=== PATIENT | male | born 1965 | race Caucasian/White ===

== ENCOUNTER 2024-09-22 00:39 | Inpatient (IN) | payer OTHER, SELFPAY ==
[2024-09-21 19:58] VITALS: BP 138/94
[2024-09-21 20:29] VITALS: BP 119/81
[2024-09-21 20:30] VITALS: BMI 35.5
--- NOTE | 2024-09-21 20:51 | ED.GENMED ---
History of Present Illness
<Tabby Nascimento PA-C - Last Filed: 09/22/24 03:45>
General
Chief Complaint: Breathing Problem
Source: patient
Exam Limitations: none
Time Seen by Provider: 09/21/24 20:14
Nursing documentation reviewed up to this point in time: agreed with
History of Present Illness
History of Present Illness:
Patient is a 59-year-old male with history atrial fibrillation, hypertension, hyperlipidemia presenting to the emergency department for evaluation of 1 week of exertional dyspnea. Patient states that over the past week he has become extremely short
of breath while walking short distances and while lying flat at night. He states he has gained approximately 10 pounds in the past 1 week. He denies any associated chest pain, cough, or fever. He denies any lightheadedness or syncopal episodes.
Patient states that he had a cardiac ablation done approximately 1 year ago at [facility] he follows for cardiology. He was taking Eliquis metoprolol and a diuretic following this procedure although stopped these medications about 6 months ago.
Discontinuing medications was not instructed by his brim shaper. He states that he likes to 'avoid medications'.
Patient denies any recent travel or recent surgeries.
Review of Systems
<Tabby Nascimento PA-C - Last Filed: 09/22/24 03:45>
Review of Systems
Allergies reviewed?: Yes
All Other Systems: ROS reviewed and negative except as documented in HPI and ROS
Phy Exam
<Tabby Nascimento PA-C - Last Filed: 09/22/24 03:45>
Physical Exam
Physical Exam:
Vitals: Patient's vital signs are stable. Afebrile
General: Patient is in no acute distress
Skin: Warm and dry, no rashes or lesions
Head: Normocephalic, atraumatic
Eyes: Sclera nonicteric.
Throat: Protecting airway
Neck: Normal ROM, no cervical spine tenderness, no meningismus
Cardiac: Regular rate and rhythm, no murmurs.
Pulm: Fine crackles bilaterally. No apparent respiratory distress.
.
Abdomen: Abdomen soft and nontender.
Extremities: Nonpitting edema bilateral lower extremities. No evidence of cyanosis or edema. Palpable DP pulses bilaterally
Neuro: AAOx3. Grossly intact.
Psychiatric: Normal affect.
Scores
<Tabby Nascimento PA-C - Last Filed: 09/22/24 03:45>
Heart Failure Risk
Heart Failure Risk Score: Yes
History of Stroke or TIA: No
History of intubation for respiratory distress: No
Heart rate on ED arrival >/= 110: No
SaO2 <90% on arrival on room air: No
HR >/=110 during 3min walk test (or too ill to perform test): No
ECG has acute ischemic changes: Yes
Urea >/=12mmol/L (BUN 33.6mg/dL): Yes
Serum CO2>/=35mmol/L: No
Troponin I or T elevated to CT Level (0.4mg/dL): No
NT-proBNP >/=5,000ng/L (5,000pg/ml): Yes
HF Risk Score: 4
Admission Status: HIGH RISK 26.1% Consider SNF treatment or admission to hospital
Course
<Tabby Nascimento PA-C - Last Filed: 09/22/24 03:45>
Orders/Labs/Results
Orders:
Orders
09/21/24 20:52
Electrocardiogram (*1) Urgent
Reason for Study: Shortness of Breath
EKG- Treatment ONCE
CR Chest - 2 Views Urgent
Comment:
Reason For Exam: exertional dyspnea
09/21/24 21:03
Complete Blood Count/With Diff Urgent
Comprehensive Metabolic Panel Urgent
NT-proBNP Urgent
Troponin I Urgent
09/21/24 22:56
Furosemide [Lasix] 20 mg IV NOW STA
09/21/24 23:00
Flush (0.9% Sodium Chloride) [Flush (Nss)] See Dose Instructions IV PER PROTOCOL
09/21/24 23:40
Admit/Transfer Patient As Directed
Co-Sign Provider:
Level of Care: Inpatient admission
Assign to:: Telemetry
Physician / Group: reny
Diagnosis: CHF exacerbation
Reason for Telemetry: Subacute Heart Failure
Date to Stop Telemetry: 09/23/24
Time to Stop Telemetry: 11:00
Reason for Hospitalization: heart failure
Expected length of stay greater than two midnights?: Yes
ELOS- Estimated Length of Stay in days: 2
I certify the patient meets the requirements for IP care: Yes
PRN Pain Medication Management As Directed
May give lesser potent ordered pain med per pt: Yes
preference::
Protocol:: Medication orders for pain may be administered in a
manner that supports deferring to patient preference
when the pt is:
- Requesting an ordered lesser potent pain medication.
Least to most potent pain medications are defined
as: acetaminophen < NSAID < tramadol < opioids
(morphine, oxycodone, hydromorphone).
- Requesting a lesser dose of the same medication IF
ORDERED.
- Requesting a less intrusive route of administration
if both routes are prescribed by the provider (PO <
IV).
09/21/24 23:42
Code Status As Directed
Resuscitation Status: Full Code
09/22/24 00:00
Electrocardiogram (*1) Urgent
Reason for Study: Shortness of Breath
EKG- Treatment ONCE
09/22/24 00:21
Troponin I Urgent
09/22/24 01:29
Acetaminophen [Tylenol] 650 mg PO Q6HPRN PRN
09/22/24 01:29
Echo 2D MMode Color/Doppler Routine
Reason for Study: heart failure
CARDIOLOGY CONSULT Routine
Consulting Provider: Hernán Farrell
Was physician already notified: No
Reason for consult: CHF exacerbation, non-compliance
Consult Notification Routine
Specialty to Notify: Cardiology
HF DIETARY CONSULT Routine
HF EDUCATOR CONSULT Routine
Comment:
VTE Contraindication Routine
VTE Mechanical Device Contraindication: Medical Contraindication
Pharmocologic Contraindication: Medical Contraindication
Activity As Directed
Activity Level: As Tolerated
Intake/ Output As Directed
Frequency: Per unit guidelines
Orthostatic Vital Signs As Directed
Orthostatic VS Frequency: Daily
Patient Education As Directed
Type: CHF folder
Comment: give on admission. Document in Interdisciplinary Education record
Sleep Apnea Assessment by RN As Directed
Comment:
Physician Instructions:
Vital Signs As Directed
Frequency: Other
Additional Instructions:: Q12 or per unit guidelines if more frequent.
Weight As Directed
Frequency: Daily
Type of Scale: Standing Scale
Comment: Daily morning weight. If unable to stand, use balanced bed scale.
Weight As Directed
Frequency: Once
Type of Scale: Standing Scale
Comment: Upon Admission. If unable to stand, use balanced bed scale.
Pulse Ox/cont/shift [RESP] Routine
Quantity: 1
Special Instructions: Daily pulse oximetry at rest. If greater than 92% at rest also obtain pulse oximetry
while ambulating as tolerated.
09/22/24 03:32
Urinalysis Routine
Date Specimen was Collected: 09/22/24
Time Specimen was Collected: 03:30
09/22/24 Breakfast
Cholesterol Lowering
At Your Request: Full Participation
Does patient need a safe tray?: No
Reason for opting out of Outsole Splicer order writing: Provider Decision
Cholesterol Lowering: Sodium, 2 Gram
Basic Metabolic Panel IN AM
Cardiovascular Evaluation IN AM
Hemoglobin A1c [Glycohemoglobin (HgbA1c)] IN AM
Magnesium IN AM
Phosphorus IN AM
TSH Reflex To Free T4 IN AM
09/22/24 08:00
Amiodarone [Pacerone] 200 mg PO BID
Apixaban [Eliquis] 5 mg PO BID
Furosemide [Lasix] 40 mg IV BID AT 0800,1600
Metoprolol Xl [Toprol Xl] 50 mg PO DAILY
09/23/24 06:00
Basic Metabolic Panel IN AM
09/23/24 11:00
DC Protocol for Telemetry ONCE
09/24/24 06:00
Basic Metabolic Panel IN AM
Abnormal Lab Results
09/21/24 09/22/24
21:03 00:21
RBC 3.72 L 10^6/uL
(4.70-6.10)
Hgb 10.4 L g/dL
(13.0-18.0)
Hct 32.2 L %
(39.0-52.0)
MCHC 32.3 L g/dL
(33.0-37.0)
RDW 14.6 H %
(11.5-14.5)
Abs Immat Gran (auto) 0.1 H 10^3/uL
(0-0.05)
Absolute Monos (auto) 0.7 H 10^3/uL
(0.1-0.6)
Immature Gran % 0.6 H %
(0-0.5)
Lymphocytes % 19.5 L %
(20.5-51.1)
Chloride 111 H mmol/L
(98-107)
BUN 41 H mg/dl
(9-20)
Creatinine 2.4 H mg/dL
(0.7-1.3)
Glucose 111 H mg/dl
(70-99)
Troponin I 0.042 H* ng/ml 0.044 H* ng/ml
Total Protein 6.0 L g/dl
(6.3-8.2)
09/21/24 21:03
09/21/24 21:03
Vital Signs
Initial and Last Documented VS:
Initial Vital Signs
Temp Pulse Resp BP Pulse Ox
98.5 F 77 20 138/94 98
09/21/24 19:58 09/21/24 19:58 09/21/24 19:58 09/21/24 19:58 09/21/24 19:58
Last Documented Vital Signs
Temp Pulse Resp BP Pulse Ox
97.9 F 72 20 165/96 98
09/22/24 01:39 09/22/24 01:39 09/22/24 01:39 09/22/24 01:39 09/22/24 02:00
<Aldo Martinez, DO - Last Filed: 09/21/24 22:48>
Orders/Labs/Results
Orders:
Orders
09/21/24 20:52
Electrocardiogram (*1) Urgent
Reason for Study: Shortness of Breath
EKG- Treatment ONCE
CR Chest - 2 Views Urgent
Comment:
Reason For Exam: exertional dyspnea
09/21/24 21:03
Complete Blood Count/With Diff Urgent
Comprehensive Metabolic Panel Urgent
NT-proBNP Urgent
Troponin I Urgent
09/21/24 22:56
Furosemide [Lasix] 20 mg IV NOW STA
09/21/24 23:00
Flush (0.9% Sodium Chloride) [Flush (Nss)] See Dose Instructions IV PER PROTOCOL
09/21/24 23:40
Admit/Transfer Patient As Directed
Co-Sign Provider:
Level of Care: Inpatient admission
Assign to:: Telemetry
Physician / Group: reny
Diagnosis: CHF exacerbation
Reason for Telemetry: Subacute Heart Failure
Date to Stop Telemetry: 09/23/24
Time to Stop Telemetry: 11:00
Reason for Hospitalization: heart failure
Expected length of stay greater than two midnights?: Yes
ELOS- Estimated Length of Stay in days: 2
I certify the patient meets the requirements for IP care: Yes
PRN Pain Medication Management As Directed
May give lesser potent ordered pain med per pt: Yes
preference::
Protocol:: Medication orders for pain may be administered in a
manner that supports deferring to patient preference
when the pt is:
- Requesting an ordered lesser potent pain medication.
Least to most potent pain medications are defined
as: acetaminophen < NSAID < tramadol < opioids
(morphine, oxycodone, hydromorphone).
- Requesting a lesser dose of the same medication IF
ORDERED.
- Requesting a less intrusive route of administration
if both routes are prescribed by the provider (PO <
IV).
09/21/24 23:42
Code Status As Directed
Resuscitation Status: Full Code
09/22/24 00:00
Electrocardiogram (*1) Urgent
Reason for Study: Shortness of Breath
EKG- Treatment ONCE
09/22/24 00:21
Troponin I Urgent
09/22/24 01:29
Acetaminophen [Tylenol] 650 mg PO Q6HPRN PRN
09/22/24 01:29
Echo 2D MMode Color/Doppler Routine
Reason for Study: heart failure
CARDIOLOGY CONSULT Routine
Consulting Provider: Hernán Farrell
Was physician already notified: No
Reason for consult: CHF exacerbation, non-compliance
Consult Notification Routine
Specialty to Notify: Cardiology
HF DIETARY CONSULT Routine
HF EDUCATOR CONSULT Routine
Comment:
VTE Contraindication Routine
VTE Mechanical Device Contraindication: Medical Contraindication
Pharmocologic Contraindication: Medical Contraindication
Activity As Directed
Activity Level: As Tolerated
Intake/ Output As Directed
Frequency: Per unit guidelines
Orthostatic Vital Signs As Directed
Orthostatic VS Frequency: Daily
Patient Education As Directed
Type: CHF folder
Comment: give on admission. Document in Interdisciplinary Education record
Sleep Apnea Assessment by RN As Directed
Comment:
Physician Instructions:
Vital Signs As Directed
Frequency: Other
Additional Instructions:: Q12 or per unit guidelines if more frequent.
Weight As Directed
Frequency: Daily
Type of Scale: Standing Scale
Comment: Daily morning weight. If unable to stand, use balanced bed scale.
Weight As Directed
Frequency: Once
Type of Scale: Standing Scale
Comment: Upon Admission. If unable to stand, use balanced bed scale.
Pulse Ox/cont/shift [RESP] Routine
Quantity: 1
Special Instructions: Daily pulse oximetry at rest. If greater than 92% at rest also obtain pulse oximetry
while ambulating as tolerated.
09/22/24 03:32
Urinalysis Routine
Date Specimen was Collected: 09/22/24
Time Specimen was Collected: 03:30
09/22/24 Breakfast
Cholesterol Lowering
At Your Request: Full Participation
Does patient need a safe tray?: No
Reason for opting out of Outsole Splicer order writing: Provider Decision
Cholesterol Lowering: Sodium, 2 Gram
Basic Metabolic Panel IN AM
Cardiovascular Evaluation IN AM
Hemoglobin A1c [Glycohemoglobin (HgbA1c)] IN AM
Magnesium IN AM
Phosphorus IN AM
TSH Reflex To Free T4 IN AM
09/22/24 08:00
Amiodarone [Pacerone] 200 mg PO BID
Apixaban [Eliquis] 5 mg PO BID
Furosemide [Lasix] 40 mg IV BID AT 0800,1600
Metoprolol Xl [Toprol Xl] 50 mg PO DAILY
09/23/24 06:00
Basic Metabolic Panel IN AM
09/23/24 11:00
DC Protocol for Telemetry ONCE
09/24/24 06:00
Basic Metabolic Panel IN AM
Abnormal Lab Results
09/21/24 09/22/24
21:03 00:21
RBC 3.72 L 10^6/uL
(4.70-6.10)
Hgb 10.4 L g/dL
(13.0-18.0)
Hct 32.2 L %
(39.0-52.0)
MCHC 32.3 L g/dL
(33.0-37.0)
RDW 14.6 H %
(11.5-14.5)
Abs Immat Gran (auto) 0.1 H 10^3/uL
(0-0.05)
Absolute Monos (auto) 0.7 H 10^3/uL
(0.1-0.6)
Immature Gran % 0.6 H %
(0-0.5)
Lymphocytes % 19.5 L %
(20.5-51.1)
Chloride 111 H mmol/L
(98-107)
BUN 41 H mg/dl
(9-20)
Creatinine 2.4 H mg/dL
(0.7-1.3)
Glucose 111 H mg/dl
(70-99)
Troponin I 0.042 H* ng/ml 0.044 H* ng/ml
Total Protein 6.0 L g/dl
(6.3-8.2)
09/21/24 21:03
09/21/24 21:03
Vital Signs
Initial and Last Documented VS:
Initial Vital Signs
Temp Pulse Resp BP Pulse Ox
98.5 F 77 20 138/94 98
09/21/24 19:58 09/21/24 19:58 09/21/24 19:58 09/21/24 19:58 09/21/24 19:58
Last Documented Vital Signs
Temp Pulse Resp BP Pulse Ox
97.9 F 72 20 165/96 98
09/22/24 01:39 09/22/24 01:39 09/22/24 01:39 09/22/24 01:39 09/22/24 02:00
<Tabby Nascimento PA-C - Last Filed: 09/22/24 03:45>
MDM/Problems Addressed
Differential Diagnosis Includes:
Not limited to: acute coronary syndrome, acute CHF exacerbation, anemia, bronchitis, pneumonia, etc
MDM/Problems Addressed:
59-year-old male presents with one week of exertional dyspnea and 10lb weight gain. No exertional chest pain. No infectious symptoms, including fever or cough. Patient with history of afib s/p ablation. He decided to stop his medication�s (eliquis,
metoprolol, lasix) that are prescribed by his brim shaper for the past 6 months, however did restart this past Thursday after not feeling well. Vitals and physical exam as above.
Given exertional dyspnea and recent weight gain � concern for possible congestive heart failure. Other considerations include ACS, anemia, bronchitis, etc. Will check labs, cardiac enzymes, chest x-ray, EKG.
Update: Labs and imaging reviewed. Overall impression is likely acute CHF exacerbation given significantly elevated proBNP and pulmonary edema on chest x-ray. Troponin elevated, which I suspect to be due to demand ischemia however given new T wave
inversions noted on EKG, unable to exclude acute coronary syndrome. Will continue to trend troponin. Considered IV heparin however patient has been taking Eliquis for the past three days. Patient also found to have an DANA. He will require admission
for careful fluid balance and diuresis. Patient given 20 mg IV Lasix in emergency department. Patient accepted to hospitalist service in stable condition.
Chronic conditions affecting care:
Atrial fibrillation, CHF
Acute Exacerbation and/or Progression of Chronic Illness:
Acute CHF exacerbation
<Tabby Nascimento PA-C - Last Filed: 09/22/24 03:45>
*Radiology
Radiology exam reviewed: preliminary read by ED provider (Mild pulmonary edema and increased pulmonary vascualture)
*Pulse Oximetry
Patient hypoxic: no
*EKG
Interpreted by ED Provider?: Yes
EKG Intrepretation Date: 09/21/24
Interpretation: abnormal
Comparison EKG: changes noted
Heart Rate: 75
Rate: normal
Rhythm: sinus
[place]: indeterminate
Ischemia: T-wave inversion (inverted T waves in anterior/lateral leads)
*Weather Reporter Interpretation
Rate: normal
Interpretation: normal
Heart Rate: 74
Rhythm: sinus
*Critical Care Note
Total Time (30-74mins, 75-104mins- exclusive of procedures): Not Applicable
<ALEXANDER Huber Last Filed: 09/22/24 03:45>
Patient Management
Discussion with other providers: Hospitalist
Escalation/DeEscalation of care consider admission/obs:
Admit for acute CHF exacerbation/ DANA
ED Attending Note
<ALEXANDER Huber Last Filed: 09/22/24 03:45>
-
Portions of this chart may have been created with voice recognition software.� Occasional wrong word or��sound alike� substitutions may have occurred due to the inherent limitations of voice recognition software.
<Aldo Martinez DO - Last Filed: 09/21/24 22:48>
ED Attending Note
I performed the substantive portion of visit, reviewed & personally made and approve the management plan that is documented in note by myself or LOR.: Yes
Discharge Plan
Departure
Patient Disposition: Admit
Date of Disposition: 09/21/24
Time of Disposition: 22:56
Presentation/result/management discussed w/ accepting MD/DO: Hospitalist
Discharge Problem:
Acute exacerbation of CHF (congestive heart failure), DANA (acute kidney injury), Elevated troponin I level
Interventions
Interventions:
*Risk Screen - Suicide Last Done: 09/21/24 19:58
*General Assessment Last Done: 09/21/24 19:58
*Neglect/Abuse Screening Last Done: 09/21/24 19:58
*ED- Fall Risk Assessment Last Done: 09/21/24 20:30
*ED COVID-19 Vaccine History Last Done: 09/21/24 20:30
*Nursing Disposition Last Done: 09/22/24 01:31
ED- Cardiac Assessment Last Done: 09/21/24 20:30
ED- Pulmonary Assessment Last Done: 09/21/24 20:30
Discharge Date and Time
Discharge Date/Time: 09/22/24 01:32
[2024-09-21 21:00] VITALS: BP 117/85
[2024-09-21 21:11] LABS: % Basophils 0.7 % (0-2); % Immature Granulocytes 0.6 % (0-0.5); % Lymphocytes 19.5 % (20.5-51.1); % Monocytes 7.7 % (1.7-9.3); % Neutrophils 68.5 % (42.2-75.2); Absolute Basophils 0.1 10^3/uL (0-0.2); Absolute Eosinophils 0.3 10^3/uL (0-0.7); Absolute Immature Granulocytes 0.1 10^3/uL (0-0.05); Absolute Lymphocytes 1.7 10^3/uL (1.2-3.4); Absolute Monocytes 0.7 10^3/uL (0.1-0.6); Absolute Neutrophils 6.1 10^3/uL (1.4-6.5); Hematocrit 32.2 % (39.0-52.0); Hemoglobin 10.4 g/dL (13.0-18.0); Mean Corp Hgb Conc. 32.3 g/dL (33.0-37.0); Mean Corpuscular Volume 86.6 fL (80.0-94.0); Mean Platelet Volume 10.1 fL (7.4-10.4); Nucleated Red Blood Cells % 0 % (-); Platelet Count 222 10^3/uL (130-400); Red Blood Cell Count 3.72 10^6/uL (4.70-6.10); Red Cell Dist. Width 14.6 % (11.5-14.5); White Blood Cell Count 8.9 10^3/uL (4.8-10.8)
[2024-09-21 21:26] LABS: ALT (SGPT) 48 U/L (0-50); AST (SGOT) 32 U/L (17-59); Albumin 3.8 g/dl (3.5-5.0); Alkaline Phosphatase 103 U/L (38-126); Blood Urea Nitrogen 41 mg/dl (9-20); Calcium 8.6 mg/dl (8.4-10.2); Carbon Dioxide 22 mmol/L (22-30); Chloride 111 mmol/L (98-107); Estimated Creatinine Clearance 41 ml/min; Glucose 111 mg/dl (70-99); Potassium 3.9 mmol/L (3.5-5.1); Sodium 140 mmol/L (135-145); Total Bilirubin 1.2 mg/dl (0.2-1.3); eGFR 30.13
[2024-09-21 21:43] LABS: NT-proBNP 20100 pg/ml; Troponin I 0.042 ng/ml
[2024-09-21 22:00] VITALS: BP 112/86
[2024-09-21 23:01] VITALS: BP 133/93
[2024-09-21] MEDS: LASIX 20 MG IV (23:01)
[2024-09-21] MEDS: FLUSH (NSS) 1 FLUSH IV (23:07)
--- NOTE | 2024-09-21 23:25 | HPS.HSE ---
Family Physician
-
Family Physician: * NONE
Chief Complaint
-
Dyspnea on exertion
History of Present Illness
This is a 59-year-old male with past medical history of B-cell lymphoma status post chemotherapy, atrial fibrillation status post ablation, history of congestive heart failure presenting to the emergency department with worsening dyspnea on exertion.
Patient apparently was hospitalized at [place] on 2022 with episode of acute congestive heart failure. He said he did not have coronary artery disease at that time but was found to be in atrial fibrillation. A month after discharge
he had an ablation. He was on appropriate medications up until 8 months ago when he felt he did not need them anymore and he discontinued both his Eliquis, his amiodarone and his metoprolol. Is unclear how much diuretic he was on but he has not
taken any of these medications in 8 months. He reported that over the last week he has had increasing dyspnea on exertion and over the last 2 days he has had orthopnea.
He reports in the past he had felt palpitations but he has no palpitations recently. He denies any chest pain. He does not smoke and denies any history of asthma, COPD or recurrent lung infections. He has no recent cough fevers or chills. Is
unsure what he thinks he is gaining some weight. He reports good urine output and reports minimal salt restriction. He reports history of CKD and a prior episode of DANA but does not know recent baseline creatinine. His last blood work was over 2
years ago he stated.
He restarted taking his Eliquis metoprolol and amiodarone 3 days ago.
He is supposed to follow with cardiology at [facility] but has not done so. His PMD is Dr. Alcaraz and he has not been seen as well.
In the emergency department he was afebrile, blood pressure was 133/93 with a pulse of 72 and he was satting 96% on room air. Chest x-ray is actually clear. ECG shows normal sinus rhythm at rate of 75 with T wave inversions in leads V4 through 6.
Initial troponin was 0.047. BNP was over 20,000. CBC was unremarkable. Electrolytes were normal. BUN/creatinine were chronically elevated at 41 and 2.4.
Medical History
Past Medical History
Past Medical History: Reports Arrhythmia (Atrial fibrillation status post ablation), Cancer (B-cell lymphoma status post chemo) and CHF
Past Surgical History: Reports Orthopedic (Bilateral total knee arthroplasty)
Social History
Tobacco: Non-smoker
Alcohol: Occasional
Drug: None
Personal:
Living: With Family
Employment: Employed
Family History
Family History: Not pertinent
Allergies / Home Medications
Allergies reflects when Allergies were last updated in [email or web address].
Home Medications with original date entered in [email or web address]
Allergy/Medication List:
Allergies
Allergy/AdvReac Type Severity Reaction Status Date / Time
No Known Allergies Allergy Verified 05/08/23 08:36
Home Medications
Metoprolol succinate 100 mg, 100 mg p.o. daily
Eliquis 5 mg tablet, 5 mg p.o. twice daily
Amiodarone 200 mg tablet, 200 mg p.o. daily
Review of Systems
-
History Source: Patient
Constitutional: Reports No Symptoms
EENT: Reports No Symptoms
Respiratory: Reports Trouble Breathing
Cardiac: Reports No Symptoms
Abdomen/GI: Reports No Symptoms
: Reports No Symptoms
Musculoskeletal: Reports No Symptoms
Skin: Reports No Symptoms
Neurological: Reports No Symptoms
Endocrine: Reports No Symptoms
Hematologic/Lymphatic: Reports No Symptoms
Psych: Reports No Symptoms
Physical Exam
Vital Signs
Vital Signs
Temp Pulse Resp BP Pulse Ox
98.5 F 71 21 133/93 99
09/21/24 19:58 09/21/24 23:15 09/21/24 23:15 09/21/24 23:01 09/21/24 23:15
Physical Exam
General: Well Developed, No Apparent Distress and Comfortable
HEENT: NormoCephalic, Anicteric, Moist mucous membranes and Atraumatic
Respiratory: Clear
Cardiac: S1/S2 and Regular Rhythm
Breast: Deferred by me
GI: Soft, Non Tender, Non Distended and Normal Bowel Sounds
Rectal: Deferred by Provider
Genito-urinary: Deferred by me
Musculoskeletal: No Clubbing, No Cyanosis and No Edema
Skin: Warm
Neuro: AO x 3 and Nonfocal/grossly intact
Hematologic/Lymphatic: No Lymphadenopathy
Psych: Calm
Laboratory Results
-
09/21/24 21:03
09/21/24 21:03
Laboratory Results
Total Bilirubin 1.2 mg/dl (0.2-1.3) 09/21/24 21:03
AST 32 U/L (17-59) 09/21/24 21:03
ALT 48 U/L (0-50) 09/21/24 21:03
Alkaline Phosphatase 103 U/L (38-126) 09/21/24 21:03
Troponin I 0.042 ng/ml H* 09/21/24 21:03
Data Reviewed
-
Diagnostic Radiology: Image Personally Visualized and interpreted and Report Reviewed by me
Medical Tests (Nuc Med, Echo, EKG etc): Image Personally Visualized and interpreted
Lab Data: Labs Reviewed by me
Old Records: Reviewed
Impression/Plan
-
IMPRESSION:
59 M with history of CHF, afib s/p ablation, CKD who has been off medications for around 8 months due to self discontinuation presenting with orthopnea and dyspnea on exertion. On exam he appears fairly euvolemic but has some JVD. No crackles, no
or trace pedal edema. BP is normal. ECG with sinus rhythm and no ischemia. Trop 0.04. BNP 20,000. Cr 2.4
PLAN:
SOB - C/W CHF exacerbation likely due to non-compliance. Denies recent diuretics. Unknown etiology but appears to be either diastolic or NICM.
- admit to telemetry
- no cp, no known cad, trend troponins
- lasix 40 mg iv q 12 for now and reasseass symptoms
- likely has elevated EDP without overt volume overload, check echo
- obtain records from [facility] 2 years ago
- continue metoprolol 50mg daily and reassess
- check lipid panel, tsh and a1c.
- cardiology consult
AFIB - s/p ablation. NSR at this time. Denies recent palpitations
- still taking amio, which he restarted 3 days ago after stopping for 8 months, will continue for now
- metoprolol succinate 50 daily
- Eliquis 5 bid
CKD - Cr 2.4, last creatinine was 1.8 done 2022 during his knee surgery. Denies nsaids. Suspect progression.
- given volume overload will continue diuresis for now
- non oliguric, obtain u/a for activity
- hold off on ACEI/AR/ARNI
- other GDMT meds such as Imdur/hydralazine considered if bp allows
- hold off on sglt for now
DVT PPX - on apixaban
Code status - full code
[2024-09-22] VITALS (9 sets, daily range): BP systolic 124–165; BP diastolic 74–102; PULSE 76–77; BMI 35.1
[2024-09-22 01:10] LABS: Troponin I 0.044 ng/ml
--- NOTE | 2024-09-22 01:35 | PTCARENOTE ---
Patient arrived from the ED via stretcher. Patient AAOx3, VSS. Ambulated into the room with assistance, very short of breath with exertion. Denies pain at this time. States he does not have dyspnea at rest. 98% on RA. Patient updated on plan of care
and medications. Call yoon is within reach.
[2024-09-22 03:45] LABS: Urine Albumin 2+ (Neg - Trace); Urine Bilirubin Negative (Negative); Urine Character Clear (Clear); Urine Color Yellow; Urine Glucose Negative (Negative); Urine Ketone Negative (Negative); Urine Leukocyte Negative (Negative); Urine Nitrite Negative (Negative); Urine Occult Blood Negative (Negative); Urine Specific Gravity 1.015 (<1.030); Urine Urobilinogen Negative (Neg - 1+)
[2024-09-22 04:44] LABS: Urine Red Blood Cell None Seen /HPF (0-2); Urine Squamous Cell None seen /LPF (Few); Urine White Cell None Seen /HPF (0-5)
[2024-09-22 08:13] LABS: Blood Urea Nitrogen 44 mg/dl (9-20); Calcium 8.8 mg/dl (8.4-10.2); Carbon Dioxide 24 mmol/L (22-30); Chloride 110 mmol/L (98-107); Estimated Creatinine Clearance 43 ml/min; Glucose 86 mg/dl (70-99); HDL Cholesterol 28 mg/dl; LDL Cholesterol, Calculated 68 mg/dl; Magnesium 1.9 mg/dl (1.6-2.3); Phosphorus 4.4 mg/dl (2.5-4.5); Sodium 143 mmol/L (135-145); Total Cholesterol 111 mg/dl (50-199); Triglyceride 76 mg/dl (10-149); Very Low Density Lipoprotein 15 mg/dl (0-30); eGFR 31.71
[2024-09-22] MEDS: LASIX 40 MG IV ×2 (08:37→15:27)
[2024-09-22] MEDS: TOPROL XL 50 MG PO (08:38)
[2024-09-22] MEDS: PACERONE 200 MG PO (08:38)
[2024-09-22] MEDS: ELIQUIS 5 MG PO ×2 (08:38→20:32)
[2024-09-22 08:42] LABS: TSH Reflex To Free T4 9.71 uIU/ml (0.47-4.68)
--- NOTE | 2024-09-22 09:07 | CON.CAR ---
Addendum entered and electronically signed by Julia Bryant MD 09/22/24 12:51:
I saw and examined the patient.
The CATTLE INSPECTOR's note was reviewed and I agree with the note.
Comment: 59 y/o male with hx HFrEF (resolved), AFIB s/p ablation 2022, HTN, hx B cell lymphoma s/p chemo and radiation, and CKD who admits he stops his medications anytime he feels better. However he began to feel poorly recently with increased
weight, abdominal bloating and increase of chronic lower extremity edema. He understands that this is the wrong approach moving forward. He typically sees Dr. Alcaraz at [place]. On exam he has a regular rate and rhythm with a normal S1-S2, no
murmur rubs or gallops were appreciated lungs were clear to auscultation extremities were soft with trace edema bilaterally. JVP was about about 13 cm of H2O while sitting upright at 90 degrees. Initial troponin was 0.044. Chest x-ray showed
pulmonary edema. EKG showed normal sinus rhythm with a right bundle branch block. He is clearly in acute decompensated heart failure. Unclear what his ejection fraction is. In the past that has been resumed reduced and then recovered but he has
been off his GDMT. Will check an echocardiogram. Will continue with IV diuresis with intensive monitoring of lites and vital signs. Given his history of A-fib he is on Eliquis 5 mg twice a day. Outpatient dose listed at 2.5 mg twice a day which
is wrong. We had a lengthy discussion about the importance of medication compliance and how GDMT helps prevent issues like this from recurring. He understands and seems like he wants to be compliant moving forward. Will follow.
Original Note:
Consultation
Consultation Request
Date/Time Consultation Requested: 09/22/24128
Date/Time Consultation Performed: 09/22/24 0908
Requesting Provider: Dr. Barajas
Performing Provider: Kika DOUGLASS for Dr. Bryant
Reason for Consultation: CHF
Medical History
-
Chief Complaint: SOB
History of Present Illness:
59 y/o male with hx HFrEF (resolved), AFIB s/p ablation 2022, HTN, hx B cell lymphoma s/p chemo and radiation, and CKD who is here for evaluation of SOB for several days. It is worse with exertion. He has no CP. There is orthopnea, 6 lb weight gain,
and LE edema and abdominal bloating. He is in no distress at the time of my assessment. Of note, he follows with Dr. Alcaraz at [place] for cardiology, but is due for a visit. He was feeling well a while back and stopped taking his medicines- he
thinks those were amiodarone, metoprolol, and Eliquis. He thinks he was on a diuretic as well. He prefers no meds, but understands he will need to take appropriate ones moving forward. He is admitted for CHF and is being diuresed. I reviewed most
recent available cardiology note from 04/29/23 and it reports that amiodarone was stopped after ablation, that he was not requiring diuretic, and for cardiac meds was just on metoprolol and Eliquis at that time.
Past Medical History
Past Medical History: Arrhythmias, Cancer, CHF, HTN, Hypercholesterolemia and Other (as above)
Social History
Tobacco: Non-Smoker
Alcohol: Occasional
Family History
Family History: Reviewed & Not Pertinent
Allergies / Home Medications
Allergy/AdvReac Type Severity Reaction Status Date / Time
No Known Allergies Allergy Verified 05/08/23 08:36
OP medications: has not been taking meds
Review of Systems
-
History Source: Patient
All other systems: Negative unless noted
Constitutional: Weight Gain
Respiratory: Trouble Breathing
Musculoskeletal: Edema
Physical Exam
Vital Signs
Temp Pulse Resp BP Pulse Ox
97.5 F 79 18 146/95 98
09/22/24 07:10 09/22/24 08:37 09/22/24 07:10 09/22/24 08:37 09/22/24 07:10
Lab Results
09/21/24 21:03
09/22/24 06:39
Troponin I 0.044 ng/ml H* 09/22/24 00:21
Khe-D-Cgqunqmqvty Pept 94675 pg/ml 09/21/24 21:03
Physical Exam
General: Well Developed, Well Nourished and No Apparent Distress
HEENT: Normocephalic and Anicteric
Respiratory: Clear and Non Labored Respirations
Cardiac: Regular Rhythm and Peripheral Edema
Musculoskeletal: Edema (mild BLE edema)
Skin: Warm and Dry
Neuro: AO x 3
Psych: Calm
Impression / Plan
-
Bvrco-ri-odivwlv HF, type unknown:
-hx includes HFrEF, but with resolved CM per OP notes
-updated echo from today is pending
-agree with IV Lasix, which requires intensive monitoring
Abnormal EKG:
-T wave inversions noted anterior and lateral
-no CP
-update echo
-may need updated ischemic eval (no ischemia on 2019), but check echo first
Abnormal troponin:
-0.044
-no CP
-suspect acute, non-ischemic myocardial injury in the setting of CHF
pSVT:
-now on BB- continue
AFIB, paroxysmal:
-hx ablation
-stop amiodarone, OP notes reviewed and this was stopped after ablation
-continue metoprolol and Eliquis. [id number] score at least 2 for HTN, CHF.
Renal dysfunction:
-unclear baseline
-monitor with diuresis
Patient understands importance of med compliance and medical follow-up.
Data Reviewed
-
EKG: Tracing Personally Visualized and interpreted (NST IVCD, anterior and lateral t wave inversions )
Radiology: Report Reviewed by me (CXR: No acute disease of the chest)
Medical Tests (Nuc Med, Echo etc): Report Reviewed by me
Labs: Labs Reviewed by me
[2024-09-22 09:11] LABS: Free T4 1.36 ng/dl (0.78-2.19)
[2024-09-22 09:34] LABS: Glycohemoglobin (HgbA1c) 5.6 % (4.0-5.6)
--- NOTE | 2024-09-22 11:27 | W.PN.HOSP.TC ---
Today's Communication/Plan
-
diuresis
monitor renal function
TTE
appreciate Cardiology
Assessment / Plan
Assessment / Plan
IMPRESSION:
59 M with history of CHF, afib s/p ablation, CKD who has been off medications for around 8 months due to self discontinuation presenting with orthopnea and dyspnea on exertion. Admitted for CHF exacerbation.
PLAN:
SOB - C/W CHF exacerbation 2/2 non-compliance with home medication.
- admit to telemetry
- Troponin up to 0.044, no chest pain
- Lasix 40mg IV BID
- TTE
- obtain records from [place] 2 years ago
- continue metoprolol 50mg daily
- cardiology consult appreciated
Subclinical Hypothyroidism
-TSH 9.71, nl free T4
-repeat as outpatient
AFIB - s/p ablation. NSR at this time. Denies recent palpitations
- Prescribed amiodarone in past - stopped post ablation
- metoprolol succinate 50 daily
- Eliquis 5 bid
CKD - Cr 2.4, last creatinine was 1.8 done 2022 during his knee surgery. Denies nsaids.
-monitor renal function with diuresis (2.3 this AM); unknown baseline
-avoid nephrotoxic medications
DVT PPX - on apixaban
Code status - full code
Anticipated Discharge: 24 - 48 hours
Subjective/Interval History
-
Date of Service: September 22, 2024
feeling better today
continues to feel short of breath
diuresing well
Objective Data
-
Labs:
Laboratory Results
09/22/24
06:39
Sodium 143
Potassium 4.0
Chloride 110 H
Carbon Dioxide 24
BUN 44 H
Creatinine 2.3 H
Glucose 86
Calcium 8.8
Vital Signs:
Vital Signs
Temp Pulse Resp BP Pulse Ox
97.6 F 76 16 161/102 98
09/22/24 11:05 09/22/24 11:05 09/22/24 11:05 09/22/24 11:05 09/22/24 11:05
I&O
09/21/24 09/22/24 09/23/24
06:59 06:59 06:59
Intake Total 480 / 480
Output Total 500 / 500
Balance -20 / -20
Review of Systems
-
History Source: Patient
All other systems: Reviewed and negative
Physical Exam
-
General: No Apparent Distress
HEENT: PERRLA
Respiratory: Wheezes and Rales
Cardiac: Regular Rhythm and S1/S2
GI: Soft and Nontender
Musculoskeletal: No Edema
Skin: Warm and Dry; Negative Rash
Neuro: AO x 3
Psych: Calm
Data Reviewed
-
Diagnostic Radiology: Report Reviewed by me
Labs: Labs Reviewed by me
--- NOTE | 2024-09-22 17:22 | W.PN.UPDATE ---
Update Note
Progress Note Update
Updated the patient as to his echocardiogram result. It showed dilated LV with an EF of 20 to 25% with global hypokinesis and anteroseptal akinesis. Mild to moderate aortic regurgitation. I recommended that he be optimized tomorrow and over the
weekend with a plan for catheterization on Thursday if creatinine is stable. Given his tenuous renal function, I would not feel comfortable planning to cath him tomorrow. Additionally we would need to plan the cath as we will need to hold Eliquis.
He will consider his options but is not sure he wants to stay that long in the hospital. Alternatively he would follow-up with Dr. Alcaraz to discuss plans.
[2024-09-23 03:42] VITALS: BP 165/91
[2024-09-23 06:00] VITALS: BMI 33.5
[2024-09-23 07:35] VITALS: BP 156/100
[2024-09-23] MEDS: ELIQUIS 5 MG PO ×2 (08:11→20:06)
[2024-09-23] MEDS: TOPROL XL 50 MG PO ×2 (08:12→20:05)
[2024-09-23 08:44] LABS: Blood Urea Nitrogen 43 mg/dl (9-20); Calcium 8.4 mg/dl (8.4-10.2); Carbon Dioxide 25 mmol/L (22-30); Chloride 108 mmol/L (98-107); Estimated Creatinine Clearance 48 ml/min; Glucose 75 mg/dl (70-99); Potassium 3.6 mmol/L (3.5-5.1); Sodium 141 mmol/L (135-145)
[2024-09-23] MEDS: LASIX 40 MG IV ×2 (09:36→16:13)
--- NOTE | 2024-09-23 10:38 | W.PN.CD ---
Today's Communication / Plan
-
- Echocardiogram yesterday revealed an LVEF of 20-25%.
- Continue Lasix 40 mg IV daily; requires intensive monitoring.
- Patient will follow recommendation of undergoing cardiac catheterization (right and left heart) on Thursday--hold Eliquis 1 day prior to procedure.
Impression / Plan
-
Donil-za-duazcqz H,rEF (EF 20-25%)/severe TR:
- Hx includes HFrEF, but with resolved CM per OP notes
- Echocardiogram yesterday revealed an LVEF of 20-25%, severe TR (PASP 52 mmHg).
- Continue Lasix 40 mg IV daily; requires intensive monitoring.
- Patient will follow recommendation of undergoing cardiac catheterization (right and left heart) on Thursday--hold Eliquis 1 day prior to procedure.
- NPO after MN Thursday.
- Further GDMT limited by renal dysfunction.
Abnormal EKG:
- T wave inversions noted anterior and lateral.
- Cardiac catheterization as above on Thursday.
Abnormal troponin:
-0.044
-no CP
-suspect acute, non-ischemic myocardial injury in the setting of CHF
pSVT:
- Will increase Toprol-XL to 50 mg twice daily.
AFIB, paroxysmal:
-hx ablation
-amiodarone discontinued; OP notes reviewed and this was stopped after ablation
- Increasing metoprolol as above; continue Eliquis--[id number] score at least 2 for HTN, CHF.
Renal dysfunction:
-unclear baseline
- Continue to monitor with diuresis
Patient understands importance of med compliance and medical follow-up.
Physical Exam
Vital Signs/Labs
Vital Signs
Temp Pulse Resp BP Pulse Ox
97.8 F 77 16 150/92 97
09/23/24 07:35 09/23/24 08:12 09/23/24 07:35 09/23/24 08:12 09/23/24 07:35
09/22/24 09/23/24 09/24/24
06:59 06:59 06:59
Actual Weight 110.932 kg 106.005 kg
09/21/24 21:03
09/23/24 07:06
Magnesium 1.9 mg/dl (1.6-2.3) 09/22/24 06:39
Triglycerides 76 mg/dl (10-149) 09/22/24 06:39
LDL Cholesterol, Calc 68 mg/dl 09/22/24 06:39
VLDL Cholesterol, Calc 15 mg/dl (0-30) 09/22/24 06:39
HDL Cholesterol 28 mg/dl 09/22/24 06:39
Free T4 1.36 ng/dl (0.78-2.19) 09/22/24 06:39
09/21/24
21:03
Hzg-Y-Vqxjvbkvsrd Pept
LAB Results
09/21/24 09/22/24
21:03 00:21
Troponin I 0.042 H* 0.044 H*
Physical Exam
Constitutional: No acute distress and Comfortable
Cardiovascular: Rhythm & rate is regular, Pedal edema present (Trace-1+), Systolic murmur present (3/6) and S1S2 is normal (Trace to 1+)
Respiratory: Respiratory effort normal and Lungs clear to auscul.
GI: Soft
Neuro/Psych: AO x 3
Other: Skin (Warm, dry, intact)
Data Reviewed
-
Date of Service: September 23, 2024
EKG: Tracing Personally Visualized and interpreted (Telemetry: Sinus rhythm, PSVT)
Echo: Report Reviewed by me (Dilated LV with LVEF 20-25%, global hypokinesis with anteroseptal akinesis; mild to moderate AR; severe TR, PASP 52 mmHg.)
Medical Tests (PFT, Pathology etc): Discussed with Patient
Labs: Labs Reviewed by me
--- NOTE | 2024-09-23 10:59 | CM ---
Addendum entered by Lesley Gilbert 09/23/24 14:35:
Patient seen bedside.
IA completed.
Patient lives with spouse in a 2 story home with 4 steps to enter.
Patient independent prior to admission without assistive devices.
Patient had VN in 2010 thru [facility].
Patient denies home care needs at this time.
PCP: Cannot remember his name, but does have new one.
Pharmacy: [facility]
Plan: home no needs anticipated.
Original Note:
TC to [facility] p# [phone]- spoke with Roseline
The cost for Jardiance is $50 per month, mail order for 3 mo supply is $125.
Farxiga is non-formulary under his plan.
[2024-09-23 11:21] VITALS: BP 132/88; BP 137/89; BP 139/88; PULSE 74; PULSE 75; PULSE 79
--- NOTE | 2024-09-23 16:24 | W.PN.HOSP.TC ---
Today's Communication/Plan
-
Diuresis
FOllow creat
Get records from [facility]
Assessment / Plan
Assessment / Plan
59-year-old with A-fib, heart failure with recovered EF with shortness of breath. Patient discontinued all his medicines 8 months ago admitted for CHF
Echo 09/22/2024-dilated LV, severely reduced LV systolic function. Global hypokinesis and anteroseptal akinesis. EF 20 to 25%. Stage II diastolic dysfunction. Mild to moderate AI. Ascending aorta measures 4.1 cm
CVS: S1-S2 normal
Chest: CTA B/L
Abdomen: Soft, NT / Bowel sounds present
Extremities: Trace edema
#Acute HFrEF
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
Sees Dr. Alcaraz at [place].
Nonischemic myocardial injury with elevated troponin
proBNP
Continue Lasix 40 mg IV twice daily
Continue metoprolol
Intake output charting, daily weights
Cardiology following
Planning for cardiac cath Thursday. May need nephrology to see given CKD
Eliquis to be held on 09/25/2024 evening
# Elevated TSH 9.71 normal T4
Likely subclinical hypothyroidism
Repeat in am
# Atrial fibrillation with history of ablation in the past
Was on amiodarone in the past-stopped after ablation.
Continue Metoprolol, Eliquis.
# CKD-stage unclear
Watch creatinine with diuresis
Unknown baseline
Avoid nephrotoxic medicines
# Anemia-likely secondary to chronic disease
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
History of Ommaya port placement 2009 for intrathecal chemotherapy
# Osteoarthritis
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
# Nephrolithiasis by history
# Noncompliance with medicines
# Obesity per BMI
# DVT prophylaxis-Eliquis
# Full code
DW RN
Patient requested me to call his unihbio-za-elu Dr. Asad Beltran who is a neurologist [phone] Beltran regarding the patient, noncompliance with medicines, findings and plan including cath and possibly of contrast-induced
nephropathy. He thinks that patient's EF has been in 20s before when he completed his chemotherapy
Part of this note was created using voice recognition system. Occasional wrong word or��sound alike� substitutions may have inadvertently occurred due to the inherent limitations of voice recognition software. If noted kindly bring it to my
attention for correction.
Anticipated Discharge: > 48 hours
Subjective/Interval History
-
Date of Service: September 23, 2024
Objective Data
-
Labs:
Laboratory Results
09/23/24
07:06
Sodium 141
Potassium 3.6
Chloride 108 H
Carbon Dioxide 25
BUN 43 H
Creatinine 2.0 H
Glucose 75
Calcium 8.4
Vital Signs:
Vital Signs
Temp Pulse Resp BP Pulse Ox
97.3 F 79 18 145/92 95
09/23/24 11:21 09/23/24 16:13 09/23/24 11:21 09/23/24 16:13 09/23/24 11:21
I&O
09/22/24 09/23/24 09/24/24
06:59 06:59 06:59
Intake Total 480 / 480 1740 / 1740
Output Total 500 / 500 3140 / 3140
Balance -20 / -20 -1400 / -1400
[2024-09-23 17:03] LABS: Iron 37 ug/dl (49-181)
[2024-09-23 17:11] LABS: Percent Saturation 11 % (20-50); Total Iron Binding Capacity 324 ug/dl (261-462)
[2024-09-23 18:05] LABS: Ferritin 20.5 ng/ml (17.9-464.0)
[2024-09-23 18:19] LABS: Vitamin B12 827 pg/ml (239-931)
[2024-09-23 19:55] VITALS: BP 127/75
[2024-09-23 23:45] VITALS: BP 151/87
[2024-09-24 03:50] VITALS: BP 116/79
[2024-09-24 06:00] VITALS: BMI 32.9
[2024-09-24 08:06] VITALS: BP 141/99
[2024-09-24 09:05] LABS: Hematocrit 42.5 % (39.0-52.0); Hemoglobin 13.9 g/dL (13.0-18.0); Mean Corp Hgb Conc. 32.7 g/dL (33.0-37.0); Mean Corpuscular Hgb 27.4 pg (27.0-31.0); Mean Corpuscular Volume 83.8 fL (80.0-94.0); Mean Platelet Volume 9.8 fL (7.4-10.4); Platelet Count 267 10^3/uL (130-400); Red Blood Cell Count 5.07 10^6/uL (4.70-6.10); Red Cell Dist. Width 14.1 % (11.5-14.5); White Blood Cell Count 9.4 10^3/uL (4.8-10.8)
[2024-09-24] MEDS: TOPROL XL 50 MG PO ×2 (09:28→21:19)
[2024-09-24] MEDS: ELIQUIS 5 MG PO ×2 (09:28→21:19)
[2024-09-24 09:48] LABS: Blood Urea Nitrogen 41 mg/dl (9-20); Calcium 9.1 mg/dl (8.4-10.2); Carbon Dioxide 34 mmol/L (22-30); Chloride 101 mmol/L (98-107); Estimated Creatinine Clearance 47 ml/min; Glucose 88 mg/dl (70-99); Sodium 143 mmol/L (135-145)
[2024-09-24 10:04] LABS: TSH Reflex To Free T4 8.28 uIU/ml (0.47-4.68)
[2024-09-24] MEDS: LASIX 40 MG IV ×2 (10:19→16:02)
[2024-09-24 10:33] LABS: Free T4 1.38 ng/dl (0.78-2.19)
[2024-09-24 11:35] VITALS: BP 113/74
--- NOTE | 2024-09-24 11:59 | W.PN.CD ---
Today's Communication / Plan
-
- Added detail discussion with the patient regarding need for left and right heart cath on Thursday.
- N.p.o. on Thursday night plan for left/right heart cath
Impression / Plan
-
Aihns-zp-cruchok H,rEF (EF 20-25%)/severe TR:
- Hx includes HFrEF, but with resolved CM per OP notes. now EF dropped again
- Echocardiogram 09/22 revealed an LVEF of 20-25%, severe TR (PASP 52 mmHg).
- Continue Lasix 40 mg IV daily; requires intensive monitoring.
- Patient will follow recommendation of undergoing cardiac catheterization (right and left heart) on Thursday--hold Eliquis 1 day prior to procedure.
- NPO after MN Thursday.
- Further GDMT limited by renal dysfunction.
Abnormal EKG:
- T wave inversions noted anterior and lateral.
- Cardiac catheterization as above on Thursday.
Abnormal troponin:
-0.044
-no CP
-suspect acute, non-ischemic myocardial injury in the setting of CHF
pSVT:
- increased Toprol-XL to 50 mg twice daily.
AFIB, paroxysmal:
-hx ablation @[facility]
-amiodarone discontinued; OP notes reviewed and this was stopped after ablation
- Increasing metoprolol as above; continue Eliquis--[id number] score at least 2 for HTN, CHF.
Renal dysfunction:
-unclear baseline
- Continue to monitor with diuresis
Patient understands importance of med compliance and medical follow-up.
Physical Exam
Vital Signs/Labs
Vital Signs
Temp Pulse Resp BP Pulse Ox
98.2 F 79 18 113/74 100
09/24/24 11:35 09/24/24 11:35 09/24/24 11:35 09/24/24 11:35 09/24/24 11:35
09/23/24 09/24/24 09/25/24
06:59 06:59 06:59
Actual Weight 106.005 kg 103.986 kg
09/24/24 08:14
09/24/24 08:14
Magnesium 1.9 mg/dl (1.6-2.3) 09/22/24 06:39
Triglycerides 76 mg/dl (10-149) 09/22/24 06:39
LDL Cholesterol, Calc 68 mg/dl 09/22/24 06:39
VLDL Cholesterol, Calc 15 mg/dl (0-30) 09/22/24 06:39
HDL Cholesterol 28 mg/dl 09/22/24 06:39
Free T4 1.38 ng/dl (0.78-2.19) 09/24/24 08:15
09/21/24
21:03
Tsh-T-Vqvqfbsflzl Pept
LAB Results
09/21/24 09/22/24
21:03 00:21
Troponin I 0.042 H* 0.044 H*
Physical Exam
Constitutional: No acute distress and Comfortable
EENT: Anicteric and Moist mucous membranes
Cardiovascular: Rhythm & rate is regular, Pedal edema is absent, JVD pressure is normal and Systolic murmur absent
Respiratory: Respiratory effort normal, Lungs clear to auscul. and Wheeze Absent
GI: Soft, Distention absent, Non tender and Normal bowel sounds
Neuro/Psych: Alert, Oriented and AO x 3
Data Reviewed
-
Date of Service: September 24, 2024
Medical Decision Making: Reviewed Test Results, Independent Historian Assessment, Test Interpretation and Review of Case with other Provider
EKG: Tracing Personally Visualized and interpreted (Sinus with IVCD)
Echo: Report Reviewed by me
Labs: Labs Reviewed by me
Old Records: Reviewed
--- NOTE | 2024-09-24 13:33 | W.PN.HOSP.TC ---
Today's Communication/Plan
-
Lasix
follow creat
cath Thursday
Assessment / Plan
Assessment / Plan
59-year-old with A-fib, heart failure with recovered EF with shortness of breath. Patient discontinued all his medicines 8 months ago admitted for CHF
Echo 09/22/2024-dilated LV, severely reduced LV systolic function. Global hypokinesis and anteroseptal akinesis. EF 20 to 25%. Stage II diastolic dysfunction. Mild to moderate AI. Ascending aorta measures 4.1 cm
CVS: S1-S2 normal
Chest: CTA B/L
Abdomen: Soft, NT / Bowel sounds present
Extremities: No edema
#Acute HFrEF
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
Sees Dr. Alcaraz at [place].
Nonischemic myocardial injury with elevated troponin
proBNP
Continue Lasix 40 mg IV twice daily
Continue metoprolol
Intake output charting, daily weights
Cardiology following
Planning for cardiac cath Thursday. May need nephrology to see given CKD
Eliquis to be held on 09/25/2024 evening
Lasix to be held 09/25/24 evening also
Bicarb Prophylaxis thursday am
# Elevated TSH 9.71 normal T4
Likely subclinical hypothyroidism
Repeat better
OP Follow up
# Atrial fibrillation with history of ablation in the past
Was on amiodarone in the past-stopped after ablation.
Continue Metoprolol, Eliquis.
# CKD-stage unclear
Watch creatinine with diuresis
Unknown baseline
Avoid nephrotoxic medicines
# Anemia-likely secondary to chronic disease
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
History of Ommaya port placement 2009 for intrathecal chemotherapy
# Osteoarthritis
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
# Nephrolithiasis by history
# Noncompliance with medicines
# Obesity per BMI
# DVT prophylaxis-Eliquis
# Full code
DW RN
09/23/24-Patient requested me to call his dgwxezg-fv-sjg Dr. Asad Beltran who is a neurologist [phone][address] I updated Dr. Beltran regarding the patient, noncompliance with medicines, findings and plan including cath and possibly of contrast-induced
nephropathy. He thinks that patient's EF has been in 20s before when he completed his chemotherapy
Part of this note was created using voice recognition system. Occasional wrong word or��sound alike� substitutions may have inadvertently occurred due to the inherent limitations of voice recognition software. If noted kindly bring it to my
attention for correction.
Anticipated Discharge: Within 24 hours
Subjective/Interval History
-
Date of Service: September 24, 2024
Objective Data
-
Labs:
Laboratory Results
09/24/24
08:14
WBC 9.4
Hgb 13.9 D
Hct 42.5
Plt Count 267 D
Sodium 143
Potassium 4.0
Chloride 101
Carbon Dioxide 34 H
BUN 41 H
Creatinine 2.0 H
Glucose 88
Calcium 9.1
Vital Signs:
Vital Signs
Temp Pulse Resp BP Pulse Ox
98.2 F 79 18 113/74 100
09/24/24 11:35 09/24/24 11:35 09/24/24 11:35 09/24/24 11:35 09/24/24 11:35
I&O
09/23/24 09/24/24 09/25/24
06:59 06:59 06:59
Intake Total 1740 / 1740 660 / 660
Output Total 3140 / 3140 3260 / 3260
Balance -1400 / -1400 -2600 / -2600
[2024-09-24 16:11] VITALS: BP 143/66
[2024-09-24 19:46] VITALS: BP 124/81
[2024-09-24 23:14] VITALS: BP 130/81
[2024-09-25 03:57] VITALS: BP 113/85
[2024-09-25 06:00] VITALS: BMI 31.9
[2024-09-25 07:30] VITALS: BP 142/89
[2024-09-25] MEDS: TOPROL XL 50 MG PO ×2 (07:53→20:17)
[2024-09-25] MEDS: ELIQUIS 5 MG PO (07:53)
[2024-09-25] MEDS: LASIX 40 MG IV (07:54)
[2024-09-25 09:36] LABS: Blood Urea Nitrogen 42 mg/dl (9-20); Calcium 8.9 mg/dl (8.4-10.2); Carbon Dioxide 31 mmol/L (22-30); Chloride 99 mmol/L (98-107); Estimated Creatinine Clearance 47 ml/min; Glucose 179 mg/dl (70-99); Potassium 3.7 mmol/L (3.5-5.1); Sodium 139 mmol/L (135-145)
[2024-09-25 11:32] VITALS: BP 129/90
--- NOTE | 2024-09-25 12:26 | W.PN.CD ---
Today's Communication / Plan
-
- N.p.o. after midnight for left and right heart cath
Impression / Plan
-
Eyxyg-xq-dolbjmv H,rEF (EF 20-25%)/severe TR:
- Hx includes HFrEF, but with resolved CM per OP notes. now EF dropped again
- Echocardiogram 09/22 revealed an LVEF of 20-25%, severe TR (PASP 52 mmHg).
- Continue Lasix 40 mg IV daily; requires intensive monitoring.
- Patient will follow recommendation of undergoing cardiac catheterization (right and left heart) on Thursday--hold Eliquis 1 day prior to procedure.
- NPO after MN Thursday.
- Further GDMT limited by renal dysfunction.
Abnormal EKG:
- T wave inversions noted anterior and lateral.
- Cardiac catheterization as above on Thursday.
Abnormal troponin:
-0.044
-no CP
-suspect acute, non-ischemic myocardial injury in the setting of CHF
pSVT:
- increased Toprol-XL to 50 mg twice daily.
AFIB, paroxysmal:
-hx ablation @[facility]
-amiodarone discontinued; OP notes reviewed and this was stopped after ablation
- Increasing metoprolol as above; continue Eliquis--[id number] score at least 2 for HTN, CHF.
Renal dysfunction:
-unclear baseline
- Continue to monitor with diuresis
Patient understands importance of med compliance and medical follow-up.
Physical Exam
Vital Signs/Labs
Vital Signs
Temp Pulse Resp BP Pulse Ox
98.5 F 89 18 129/90 100
09/25/24 11:32 09/25/24 11:32 09/25/24 11:32 09/25/24 11:32 09/25/24 12:07
09/24/24 09/25/24 09/26/24
06:59 06:59 06:59
Actual Weight 103.986 kg 100.811 kg
09/24/24 08:14
09/25/24 08:53
Magnesium 1.9 mg/dl (1.6-2.3) 09/22/24 06:39
Triglycerides 76 mg/dl (10-149) 09/22/24 06:39
LDL Cholesterol, Calc 68 mg/dl 09/22/24 06:39
VLDL Cholesterol, Calc 15 mg/dl (0-30) 09/22/24 06:39
HDL Cholesterol 28 mg/dl 09/22/24 06:39
Free T4 1.38 ng/dl (0.78-2.19) 09/24/24 08:15
09/21/24
21:03
Vss-T-Tbgjrlycate Pept
Physical Exam
Constitutional: No acute distress and Comfortable
EENT: Anicteric and Moist mucous membranes
Cardiovascular: Rhythm & rate is regular, Pedal edema is absent and JVD pressure is normal
Respiratory: Respiratory effort normal, Lungs clear to auscul. and Wheeze Absent
GI: Soft, Distention absent, Non tender and Normal bowel sounds
Neuro/Psych: Alert, Oriented and AO x 3
Data Reviewed
-
Date of Service: September 25, 2024
Medical Decision Making: Reviewed Test Results, Test Interpretation and Review of Case with other Provider
EKG: Tracing Personally Visualized and interpreted
Echo: Report Reviewed by me
Labs: Labs Reviewed by me
Old Records: Reviewed
[2024-09-25 15:30] VITALS: BP 110/60
--- NOTE | 2024-09-25 15:44 | W.PN.HOSP.TC ---
Today's Communication/Plan
-
N.p.o. after midnight
Hold Lasix and Eliquis
Assessment / Plan
Assessment / Plan
59-year-old with A-fib, heart failure with recovered EF with shortness of breath. Patient discontinued all his medicines 8 months ago admitted for CHF
Echo 09/22/2024-dilated LV, severely reduced LV systolic function. Global hypokinesis and anteroseptal akinesis. EF 20 to 25%. Stage II diastolic dysfunction. Mild to moderate AI. Ascending aorta measures 4.1 cm
CVS: S1-S2 normal
Chest: CTA B/L
Abdomen: Soft, NT / Bowel sounds present
Extremities: No edema
#Acute HFrEF
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
Sees Dr. Alcaraz at [place].
Nonischemic myocardial injury with elevated troponin
proBNP
Continue Lasix 40 mg IV twice daily- Hold evening dose and AM dose for cath ( CKD)
Continue metoprolol
Intake output charting, daily weights
Cardiology following
Planning for cardiac cath Thursday.
Eliquis to be held . Restart Eliquis when okay with cardiology
Bicarb Prophylaxis thursday
# Elevated TSH 9.71 normal T4
Likely subclinical hypothyroidism
Repeat better
OP Follow up
# Atrial fibrillation with history of ablation in the past
Was on amiodarone in the past-stopped after ablation.
Continue Metoprolol, Eliquis.
# CKD-stage unclear
Watch creatinine with diuresis-stable so far
Unknown baseline
Avoid nephrotoxic medicines
# Anemia-likely secondary to chronic disease
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
History of Ommaya port placement 2009 for intrathecal chemotherapy
# Osteoarthritis
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
# Nephrolithiasis by history
# Noncompliance with medicines
# Obesity per BMI
# DVT prophylaxis-Eliquis
# Full code
DW RN
Discussed with [id number] Dr. Asad Beltran who is a neurologist [phone].
Discussed about cardiac catheterization, chances of WADE.
Part of this note was created using voice recognition system. Occasional wrong word or��sound alike� substitutions may have inadvertently occurred due to the inherent limitations of voice recognition software. If noted kindly bring it to my
attention for correction.
Anticipated Discharge: 24 - 48 hours
Subjective/Interval History
-
Date of Service: September 25, 2024
Objective Data
-
Labs:
Laboratory Results
09/25/24
08:53
Sodium 139
Potassium 3.7
Chloride 99
Carbon Dioxide 31 H
BUN 42 H
Creatinine 2.0 H
Glucose 179 H
Calcium 8.9
Vital Signs:
Vital Signs
Temp Pulse Resp BP Pulse Ox
98.5 F 89 18 129/90 100
09/25/24 11:32 09/25/24 11:32 09/25/24 11:32 09/25/24 11:32 09/25/24 12:07
I&O
09/24/24 09/25/24 09/26/24
06:59 06:59 06:59
Intake Total 660 / 660 1200 / 1200
Output Total 3260 / 3260 3250 / 3250
Balance -2600 / -2600 -2049 / -2049
[2024-09-25 19:25] VITALS: BP 145/91
[2024-09-25 23:37] VITALS: BP 117/80
[2024-09-26] VITALS (12 sets, daily range): BP systolic 115–147; BP diastolic 75–97; BMI 31.9
[2024-09-26] MEDS: TOPROL XL 50 MG PO ×2 (07:22→22:18)
[2024-09-26 07:29] LABS: Blood Urea Nitrogen 46 mg/dl (9-20); Calcium 9.2 mg/dl (8.4-10.2); Carbon Dioxide 31 mmol/L (22-30); Chloride 101 mmol/L (98-107); Estimated Creatinine Clearance 42 ml/min; Glucose 99 mg/dl (70-99); Potassium 4.3 mmol/L (3.5-5.1); Sodium 139 mmol/L (135-145); eGFR 33.45
[2024-09-26] MEDS: LOW STRENGTH ASPIRIN 324 MG PO (09:33)
--- NOTE | 2024-09-26 14:38 | W.PN.HOSP.TC ---
Today's Communication/Plan
-
Awaiting cath
Bicarb prophylaxis ordered
No Lasix today
Restart Eliquis when okay with cardiology
Creatinine tomorrow morning
Assessment / Plan
Assessment / Plan
59-year-old with A-fib, heart failure with recovered EF with shortness of breath. Patient discontinued all his medicines 8 months ago admitted for CHF
Echo 09/22/2024-dilated LV, severely reduced LV systolic function. Global hypokinesis and anteroseptal akinesis. EF 20 to 25%. Stage II diastolic dysfunction. Mild to moderate AI. Ascending aorta measures 4.1 cm
CVS: S1-S2 normal
Chest: CTA B/L
Abdomen: Soft, NT / Bowel sounds present
Extremities: No edema
#Acute HFrEF
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
Sees Dr. Alcaraz at [place].
Nonischemic myocardial injury with elevated troponin
proBNP
Lasix 40 mg IV twice daily- Held since 09/26/24 evening
Continue metoprolol
Intake output charting, daily weights
Cardiology following
Planning for cardiac cath today 09/26/24
Eliquis held . Restart Eliquis when okay with cardiology
Bicarb Prophylaxis ordered
# Elevated TSH 9.71 normal T4
Likely subclinical hypothyroidism
Repeat better
OP Follow up
# Atrial fibrillation with history of ablation in the past
Was on amiodarone in the past-stopped after ablation.
Continue Metoprolol, hold Eliquis.
# CKD-stage unclear
Watch creatinine with diuresis-2.2 today
Unknown baseline
Avoid nephrotoxic medicines
Need to watch for WADE post cath
# Anemia-likely secondary to chronic disease
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
History of Ommaya port placement 2009 for intrathecal chemotherapy
# Osteoarthritis
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
# Nephrolithiasis by history
# Noncompliance with medicines
# Obesity per BMI
# DVT prophylaxis-Eliquis
# Full code
DW RN
Discussed with [id number] Dr. Asad Beltran who is a neurologist [phone]. On 09/25/2024
Part of this note was created using voice recognition system. Occasional wrong word or��sound alike� substitutions may have inadvertently occurred due to the inherent limitations of voice recognition software. If noted kindly bring it to my
attention for correction.
Anticipated Discharge: 24 - 48 hours
Subjective/Interval History
-
Date of Service: September 26, 2024
Objective Data
-
Labs:
Laboratory Results
09/26/24
06:38
Sodium 139
Potassium 4.3
Chloride 101
Carbon Dioxide 31 H
BUN 46 H
Creatinine 2.2 H
Glucose 99
Calcium 9.2
Vital Signs:
Vital Signs
Temp Pulse Resp BP Pulse Ox
98.1 F 85 18 126/82 97
09/26/24 11:02 09/26/24 11:02 09/26/24 11:02 09/26/24 11:02 09/26/24 11:02
I&O
09/25/24 09/26/24 09/27/24
06:59 06:59 06:59
Intake Total 1200 / 1200 960 / 960
Output Total 3250 / 3250 1320 / 1320
Balance -2049 / -0 -360 / -360
--- NOTE | 2024-09-26 16:52 | ITS.CL.CATH ---
[employer] Professor - Catheterization
Cardiac Catheterization
Procedure Report:
CARDIAC CATHETERIZATION REPORT
Date of Procedure: 09/26/2024
Referring: Chandana Cavanaugh M.D., Ph.D.
Indication: New cardiomyopathy, heart failure with reduced ejection fraction.
PROCEDURE:
1. Right heart catheterization.
2. Coronary angiography.
3. Left heart catheterization.
A total of 10 minutes of procedural/moderate sedation was utilized. An independent chief medical officer was present to assist with and help manage the patient's level of consciousness and physiologic status.
ACCESS:
1. Sick Belgian right artery using a modified Seldinger technique.
2. Failed 5 Belgian right antecubital vein using a previously placed IV. The vein appeared dissected and we could not advance the right heart catheter without discomfort.
3. 5 Belgian right antecubital vein, medial to the IV attempt, using a modified Seldinger technique under ultrasound guidance.
CATHETERS:
1. 5 Belgian balloon wedge.
2. 5 Belgian JR 4.
3. 5 Belgian JL 3.5.
HEMODYNAMIC DATA
Weight (kg): 100.7
AO (s/d/x, mmHg): 100/65/77
LV (s/x, mmHg): 102/18
PCWP (a/v/x, mmHg): /
PA (s/d/x, mmHg): /
RV (s/x, mmHg):
RA (a/v/x, mmHg):
SVC SvO2 (%): 55.0
IVC SvO2 (%): Not obtained.
RA SvO2 (%): Not obtained
RV SvO2 (%): Not obtained.
PA SvO2 (%): 55.6
SaO2 (%): 97.7
Hbg (g/dL): 14.1
CAMERON
CO (L/min): 3.30
CI (L/min/m2): 1.51
Thermodilution
CO (L/min): Not performed.
CI (L/min/m2): Not performed.
TPG (mmHg): 5
PVR (Perez Units): 1.52
SVR (dynes*seconds*cm^-5): 1600
AVO2 Diff (Volume %): 8.18
AV gradient (x, mmHg): None.
AV area (cm2): Normal.
MV gradient (x, mmHg): Not obtained.
MV area (cm2): Not obtained.
LEFT VENTRICULOGRAPHY: Not performed.
AORTOGRAPHY: Not performed.
CORONARY ANGIOGRAPHY
Dominance: Right.
Left Main: Normal size, bifurcating vessel. There is no coronary artery disease.
LAD: Normal size vessel giving rise to 3 diagonals with a large master septal. There is a 30% lesion in the mid LAD, immediately after the origin of the large septal branch. The true distal LAD is smaller than the third diagonal. There is a
75% lesion in the proximal margin of the septal.
Ramus: Congenitally absent
Circumflex: Large size, nondominant vessel giving rise to 1 and normal is obtuse marginal which subsequently bifurcates into 2 daughter vessels. There is no coronary artery disease. The distal daughter vessels of OM1 are severely tortuous.
RCA: Large size, dominant vessel with an anterior and downward facing origin. There is a 40% lesion in the proximal margin of the RCA as it turns cephalad.
INTERVENTIONS
None
Closure Device: Vascular band for the right radial artery, manual pressure for the right antecubital vein.
Radiation dose (mGy): 409.9
DAP (cm2.Gy): 37.5437
Fluoroscopy time (minutes): 3.3
CONCLUSIONS:
1. Right dominant circulation with a 30% lesion in the mid LAD after a large septal branch, a 75% lesion in the proximal margin of the septal device repair technician, and anterior, downward facing origin of a large, dominant right coronary artery with a 40%
lesion in its proximal margin as it turns cephalad.
2. Mildly elevated filling pressures, likely appropriate given degree of LV dysfunction (LVEDP = 18 mmHg, PCWP = 19 mmHg at 100.7 kg).
3. Severely reduced cardiac index (1.52 L/min/m2). A VO2 difference = 8.18 volume % (normal <5.5).
4. Failed right heart cath via antecubital IV placement, likely with some vein dissection.
RECOMMENDATIONS:
1. Expectant management after cardiac catheterization via right radial/antecubital approach.
2. Limited weight bearing on the right wrist for one week.
3. Continued aggressive medical therapy as the documented coronary artery disease does not correlate with such a marked decline in LV function.
4. OMT/GDMT as hemodynamics tolerate.
5. Aggressive primary prevention with high-dose, high potency statin.
6. Continue treatment of paroxysmal atrial fibrillation (with history of ablation).
7. Okay to resume therapeutic anticoagulation tomorrow morning.
Copy to: Cahndana Cavanaugh M.D., Ph.D., Eva Aguilera M.D.
Humphrey Lemos DO, FACC, FACP
--- NOTE | 2024-09-26 17:33 | PTCARENOTE ---
pt back from laboratory phlebotomist s/p R&L Heart Cath. pt is AAO*3, Vss, room air. pt with arm band applied at 1645. pt oriented to the room. call yoon within the reach. plan of care ongoing.
[2024-09-26 22:20] LABS: Urine Albumin 3+ (Neg - Trace); Urine Bilirubin Negative (Negative); Urine Character Clear (Clear); Urine Color Yellow; Urine Glucose Negative (Negative); Urine Ketone Negative (Negative); Urine Leukocyte Negative (Negative); Urine Nitrite Negative (Negative); Urine Occult Blood Negative (Negative); Urine Urobilinogen Negative (Neg - 1+); Urine pH 6.5 (5.0-9.0)
[2024-09-26 22:43] LABS: Urine Sodium 43 mmol/L (30-90)
[2024-09-26 23:11] LABS: Urine Bacteria Few (Negative); Urine Red Blood Cell 0-2 /HPF (0-2); Urine White Cell 0-2 /HPF (0-5)
[2024-09-27] VITALS: BP 135/92
[2024-09-27 03:19] VITALS: BP 140/87
[2024-09-27 05:27] VITALS: BMI 32.4
[2024-09-27 07:00] VITALS: BP 106/74
[2024-09-27 07:17] LABS: Hematocrit 40.9 % (39.0-52.0); Hemoglobin 13.6 g/dL (13.0-18.0); Mean Corp Hgb Conc. 33.3 g/dL (33.0-37.0); Mean Corpuscular Hgb 27.6 pg (27.0-31.0); Mean Platelet Volume 9.9 fL (7.4-10.4); Platelet Count 237 10^3/uL (130-400); Red Blood Cell Count 4.93 10^6/uL (4.70-6.10); Red Cell Dist. Width 13.7 % (11.5-14.5); White Blood Cell Count 9.7 10^3/uL (4.8-10.8)
[2024-09-27 07:52] LABS: Blood Urea Nitrogen 46 mg/dl (9-20); Calcium 8.9 mg/dl (8.4-10.2); Carbon Dioxide 32 mmol/L (22-30); Chloride 101 mmol/L (98-107); Estimated Creatinine Clearance 47 ml/min; Glucose 91 mg/dl (70-99); Potassium 4.2 mmol/L (3.5-5.1); Sodium 140 mmol/L (135-145)
--- NOTE | 2024-09-27 10:04 | W.PN.CD ---
Addendum entered and electronically signed by Chandana Cavanaugh MD 09/27/24 11:35:
59 yo male with PMH of chronic HFrEF, with previously improved EF, then stopped meds, and admitted with acute HFrEF, EF 20-25%, CKD3b. He feels back to baseline after IV diuresis. Exam with RRR, no murmurs, no edema. Tele: SR 80s.
Stable for discharge from cardiac perspective. Toprol XL 75mg bid, lasix 40mg daily, jardiance 10mg daily. Holding off on entresto and aldactone until outpatient, given CKD3b, and new start jardiance.BMP next week.
Continue eliquis 5mg bid for A fib (paroxysmal) and crestor 20mg daily for CAD.
Original Note:
Today's Communication / Plan
-
Start Jardiance 10 mg daily
Transition intravenous furosemide to oral form
Impression / Plan
-
I/P: 59M with recovered HFrEF, atrial fibrillation status post ablation (2022), hypertension, B-cell lymphoma s/p chemotherapy and XRT, and chronic kidney disease who presented with shortness of breath.
Outpatient ethernet network architect: Dr. Alcaraz
Fbqrj-li-tutcike HrEF (EF 20-25%)
- He had a recovered cardiomyopathy in the past
- [facility] 09/26: Mildly elevated filling pressures, likely appropriate given degree of LV dysfunction (LVEDP = 18 mmHg, PCWP = 19 mmHg at 100.7 kg).
- Transition to oral furosemide
- GDMT as tolerated:
-ENID/ARB/ARNI: None due to renal dysfunction
-SGLT2 inhibitor: Start Jardiance 10 mg daily, Jeanmeghanadan is non-formulary on his plan
-Aldosterone agonist: None due to renal dysfunction
-Beta salo: Metoprolol succinate 50 mg twice daily
-Isosorbide/Hydralazine:�Not indicated
-ICD: Reevaluate LVEF after maximally tolerated medical therapy for 90 days
- Heart failure education including daily weight, sodium restriction, and fluid restriction reviewed with the patient at the bedside
Coronary artery disease
- [facility] 09/26: Right dominant circulation with a 30% lesion in the mid LAD after a large septal branch, a 75% lesion in the proximal margin of the septal carton making machinist, and anterior, downward facing origin of a large, dominant right coronary artery with
a 40% lesion in its proximal margin as it turns cephalad.
- He had anterior and lateral T wave inversions on EKG
- Start rosuvastatin 20 mg daily with goal LDL <55
- No ASA as he is on apixaban
Tricuspid regurgitation, severe
- Maintain euvolemia
Abnormal troponin, nonischemic myocardial injury in the setting of acute heart failure
- Chest pain-free
- Peak troponin 0.044
Paroxysmal atrial fibrillation
- Prior ablation at [facility]
- Oral anticoagulation: Apixaban 5 mg twice daily
- [id number] score at least 3 for HTN, vascular disease, & CHF.
CKD, stable with diuresis
PSVT, metoprolol succinate increased to 50 mg twice daily
Medication nonadherence, reviewed with the patient at the bedside
Physical Exam
Vital Signs/Labs
Vital Signs
Temp Pulse Resp BP Pulse Ox
98.2 F 91 18 106/74 95
09/27/24 07:00 09/27/24 07:00 09/27/24 07:00 09/27/24 07:00 09/27/24 07:00
09/26/24 09/27/24 09/28/24
06:59 06:59 06:59
Actual Weight 100.811 kg 102.54 kg
09/27/24 07:03
09/27/24 07:03
Magnesium 2.0 mg/dl (1.6-2.3) 09/26/24 06:38
Triglycerides 76 mg/dl (10-149) 09/22/24 06:39
LDL Cholesterol, Calc 68 mg/dl 09/22/24 06:39
VLDL Cholesterol, Calc 15 mg/dl (0-30) 09/22/24 06:39
HDL Cholesterol 28 mg/dl 09/22/24 06:39
Free T4 1.38 ng/dl (0.78-2.19) 09/24/24 08:15
09/21/24
21:03
Uty-A-Kzonjkcfqft Pept
Physical Exam
Constitutional: No acute distress and Comfortable
EENT: Anicteric and Moist mucous membranes
Cardiovascular: Rhythm & rate is regular, Pedal edema is absent and S1S2 is normal
Respiratory: Respiratory effort normal and Lungs clear to auscul.
GI: Soft, Distention absent, Flat and Non tender
Neuro/Psych: AO x 3
Other: Skin (warm and dry) and Cath Site (without hematoma)
Data Reviewed
-
Date of Service: September 27, 2024
[2024-09-27 10:25] VITALS: BP 125/77
[2024-09-27] MEDS: ELIQUIS 5 MG PO (10:28)
[2024-09-27] MEDS: LASIX 40 MG PO (10:29)
[2024-09-27] MEDS: TOPROL XL PO (10:30)
--- NOTE | 2024-09-27 10:49 | CM ---
Addendum entered by MARCUS Villagomez 09/27/24 13:20:
Received consult for VN. Patient stated that he is not homebound and plans on going back to work when he returns home.
Addendum entered by MARCUS Villagomez 09/27/24 13:07:
Provided coupon to patient. He had no concerns. Patient cleared for discharge. Family will pick him up and transport him home.
Addendum entered by MARCUS Villagomez 09/27/24 10:57:
Will provide Entresto $10 co-pay Coupon for patient.
Original Note:
Entresto MG BID requires prior authorization before coverage.
Farxiga 10 mg BID is 1400 dollars 30 day supply. Will explore coupons and manufacturers assistance programs.
[2024-09-27] MEDS: TOPROL XL 50 MG PO (10:59)
--- NOTE | 2024-09-27 11:00 | W.PN.HOSP.TC ---
Today's Communication/Plan
-
Discharge
Assessment / Plan
Assessment / Plan
59-year-old with A-fib, heart failure with recovered EF with shortness of breath. Patient discontinued all his medicines 8 months ago admitted for CHF
Echo 09/22/2024-dilated LV, severely reduced LV systolic function. Global hypokinesis and anteroseptal akinesis. EF 20 to 25%. Stage II diastolic dysfunction. Mild to moderate AI. Ascending aorta measures 4.1 cm
CVS: S1-S2 normal
Chest: CTA B/L
Abdomen: Soft, NT / Bowel sounds present
Extremities: No edema
#Acute HFrEF
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
Sees Dr. Alcaraz at [place].
Nonischemic myocardial injury with elevated troponin
proBNP
Lasix 40 mg IV twice daily- Held since 09/26/24 evening . restart 09/28/24
Continue metoprolol
Cardiology following
Cath 09/26/24, nonobstructive coronary artery disease. No stents
Cardiomyopathy is likely a combination of nonischemic cardiomyopathy likely secondary to previous chemotherapy as w nonobstructive coronary artery disease. ell as he does have some
Eliquis restarted
Creatinine stable after Cardiac catheterization
Start Jardiance.
# Nonobstructive coronary disease-statin and Eliquis
# Elevated TSH 9.71 normal T4
Likely subclinical hypothyroidism
Repeat better
OP Follow up
# Atrial fibrillation with history of ablation in the past
Was on amiodarone in the past-stopped after ablation.
Continue Metoprolol, Eliquis.
# CKD-stage unclear
Watch creatinine with diuresis-2.0 today
Unknown baseline
Avoid nephrotoxic medicines
No Lasix today, restart tomorrow.
Since patient is being started on SGLT2 inhibitors we will give a prescription for BMP to be to be done in 1 week
# Anemia-likely secondary to chronic disease
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
History of Ommaya port placement 2009 for intrathecal chemotherapy
# Osteoarthritis
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
# Nephrolithiasis by history
# Noncompliance with medicines
# Obesity per BMI
# DVT prophylaxis-Eliquis
# Full code
DW RN
Discussed with cardiology
Discussed with [id number] Dr. Asad Beltran who is a neurologist [phone]. On 09/23/24, 09/25/2024 and 09/27/24. He was very appreciative of pt's care here.
Gclzprq-oi-eez updated with med changes, creatinine, follow-up needs labs etc.
Part of this note was created using voice recognition system. Occasional wrong word or��sound alike� substitutions may have inadvertently occurred due to the inherent limitations of voice recognition software. If noted kindly bring it to my
attention for correction.
More than 30 minutes spent in discharge including
Final examination of the patient
Summarizing hospital stay
Instructions for continuing care to all relevant caregivers
Preparation of discharge records, prescriptions, and referral forms
Total time spent (in minutes): 39 min
Anticipated Discharge: Today
Subjective/Interval History
-
Date of Service: September 27, 2024
Objective Data
-
Labs:
Laboratory Results
09/27/24
07:03
WBC 9.7
Hgb 13.6
Hct 40.9
Plt Count 237
Sodium 140
Potassium 4.2
Chloride 101
Carbon Dioxide 32 H
BUN 46 H
Creatinine 2.0 H
Glucose 91
Calcium 8.9
Vital Signs:
Vital Signs
Temp Pulse Resp BP Pulse Ox
98.2 F 86 18 125/77 95
09/27/24 07:00 09/27/24 10:25 09/27/24 07:00 09/27/24 10:25 09/27/24 07:00
I&O
09/26/24 09/27/24 09/28/24
06:59 06:59 06:59
Intake Total 960 / 960 1800 / 1800
Output Total 1320 / 1320 920 / 920
Balance -360 / -360 880 / 880
--- NOTE | 2024-09-27 11:15 | W.DS.TRANS ---
Addendum entered and electronically signed by Yao Almendarez MD 09/27/24 15:21:
Dictation- [id number]
Original Note:
DC Summary - Bus Person Dishwasher
-
Discharge Instructions:
Sleep Apnea Risk High
Discharge Diagnosis/Procedures Acute HFrEF
Cardiomyopathy with ejection fraction 20 to 25%
Elevated TSH with normal T4
Atrial fibrillation
CKD stage III
Anemia
History of B-cell lymphoma
Neuropathy NOS
Diet 2 Gram Sodium,Restrict fluids to 48 oz
Driving Restrictions As prior to admission
Bathing Restrictions None
Blood Work Thyroid function test as outpatient in 6 weeks
BMP 1 week
Other Services VN
Specialty Instructions Weigh Daily
Instructions: *PCP/Other Senior Living Sales Counselor Heart Failure Instructions
Stand-Alone Forms:
Changes to Home Medications: Yes
Discharge Medications:
DC Medications w/original date entered in [employer]
apixaban 5 mg tablet (Eliquis) 5 mg PO BID Blood clot prevention/tx 07/24/22
duloxetine 20 mg capsule,delayed release 20 mg PO DAILY Mental Health/Anxiety 04/29/23
acetaminophen 500 mg tablet (Acetaminophen Extra Strength) 1,000 mg (2 x 500 mg) PO Q8H PRN pain #0 tabs 09/27/24
docusate sodium 100 mg capsule (Colace) 100 mg PO BID Constipation #30 caps 09/27/24
empagliflozin 10 mg tablet (Jardiance) 10 mg PO DAILY Heart disease/condition #30 tabs 09/27/24
furosemide 40 mg tablet 40 mg PO DAILY Fluid retention/Swelling #30 tabs 09/27/24
metoprolol succinate 50 mg tablet,extended release 24 hr 75 mg (1.5 x 50 mg) PO BID Heart disease/condition #60 tabs 09/27/24
rosuvastatin 20 mg tablet 20 mg PO DAILY High cholesterol #30 tabs 09/27/24
Home Medication Changes
new
empagliflozin 10 mg tablet (Jardiance) 10 mg PO DAILY Heart disease/condition #30 tabs 09/27/24
furosemide 40 mg tablet 40 mg PO DAILY Fluid retention/Swelling #30 tabs 09/27/24
rosuvastatin 20 mg tablet 20 mg PO DAILY High cholesterol #30 tabs 09/27/24
Dose change
metoprolol succinate 50 mg tablet,extended release 24 hr 75 mg (1.5 x 50 mg) PO BID Heart disease/condition #60 tabs 09/27/24
Pending Results: No
[2024-09-27 11:22] VITALS: BP 125/77
--- NOTE | 2024-09-28 10:17 | W.HF.CON ---
Heart Failure
- LV Function
Left ventricular function study result: LV Ejection fraction </= 35%
Ejection Fraction Percentage: 20-25
- ARNI
Patient already on ARNI: No
Heart Failure ARNI Contraindication: Worsening Renal Function
- ACEI/ARB
Patient already on ACEI/ARB: No
Heart Failure ACEI/ARB Contraindication: Worsening Renal Function
- Beta Sarahy
Patient already on Evidence Based Beta Sarahy: Yes
- Mineralocorticord Receptor Antagonist
Patient already on MRA: No
Heart Failure MRA Contraindication: Acute Renal Insufficiency
- SGLT-2 Inhibitor
Patient already on SGLT-2 Inhibitor: Yes
- Afib Anticoagulation
Patient already on Anticoagulation for Afib: Yes
- NYHA CHF Classification
NYHA CHF Classification Level: Class III - Symptoms w/ min exertion, interferes w/ nml daily activity
- ACC/AHA Stage
ACC/AHA Stage: Stage C: Symptomatic Heart Failure
== END 2024-09-27 14:04 | disposition home or self-care (01) | DRG 286 ==
LOC: 4 EAST ACU 00:39
PROVIDERS: Internal Medicine Cardiovascular Disease; Nurse Practitioner; Physician Assistant; ADMITTING PHYSICIAN Internal Medicine; ATTENDING PHYSICIAN Hospitalist; EMERGENCY PHYSICIAN Emergency Medicine; OTHER PHYSICIAN Internal Medicine Cardiovascular Disease
PROC: 4A023N8 Measurement of Cardiac Sampling and Pressure, Bilateral, Percutaneous Approach (ICD-10-PCS; 2024-09-26)
PROC: B2111ZZ Fluoroscopy of Multiple Coronary Arteries using Low Osmolar Contrast (ICD-10-PCS; 2024-09-26)
DX: I13.0 Hypertensive heart and chronic kidney disease with heart failure and stage 1 through stage 4 chronic kidney disease, or unspecified chronic kidney disease (principal); I50.21 Acute systolic (congestive) heart failure; N18.32 Chronic kidney disease, stage 3b; I42.9 Cardiomyopathy, unspecified; R94.6 Abnormal results of thyroid function studies; I48.91 Unspecified atrial fibrillation; D63.1 Anemia in chronic kidney disease; Z85.72 Personal history of non-Hodgkin lymphomas; G62.9 Polyneuropathy, unspecified; Z96.653 Presence of artificial knee joint, bilateral; Z79.01 Long term (current) use of anticoagulants; Z92.3 Personal history of irradiation; Z92.21 Personal history of antineoplastic chemotherapy; Z91.148 Patient's other noncompliance with medication regimen for other reason; E78.00 Pure hypercholesterolemia, unspecified; I45.10 Unspecified right bundle-branch block; Z79.899 Other long term (current) drug therapy
CPT/HCPCS: 71046; 80048; 80053; 80061; 81003; 81015; 82607; 82728; 83036; 83540; 83550; 83735; 83880; 84100; 84300; 84439; 84443; 84484; 85025; 85027; 93005; 93306; 93460; 96374; 99285; C1894; Q9950; Q9967